=== PATIENT | male | born 1975 | race Caucasian/White ===

== ENCOUNTER 2018-02-25 15:13 | Inpatient (IN) ==
[2018-02-25] MEDS ORDERED: Isovue-370 500 ML INFUS..BTL IV ONE (16:03)
--- NOTE | 2018-02-25 16:10 | Emergency Department Note ---
Disposition Clinical Impression: Hyperkalemia, CKD (chronic kidney disease) stage V requiring chronic dialysis Volume overload Qualifiers: Hypervolemia type: unspecified Qualified Code(s): E87.70 - Fluid overload, unspecified Disposition: Admitted As Inpatient Condition: Fair Referrals: NONE,PCP [Primary Care Provider] - Forms: ED Satisfaction Letter Time of Disposition: 16:30 General Adult HPI - General Chief complaint: ED Trauma Stated complaint: "urinating blood after fall from truck" Time Seen by Provider: 02/25/18 15:45 Source: patient Mode of arrival: ambulatory Limitations: no limitations Nursing Notes Reviewed: Yes Vital Signs Reviewed: Yes - History of Present Illness HPI Narrative: Patient is a 42-year-old male that presents the emergency department for left hip pain and blood in his urine after a fall approximately 4 days ago. Patient also states that he has been swelling more than normal and has a significant amount of swelling in his genitals. Patient states that he is a dialysis patient and dialyzes Sunday and Sunday and has not dialyzed in over a week. Patient states that he was climbing up into a truck and his leg gave out and he fell onto his left buttock and has had pain in his left hip since then. Patient denies any chest pain, shortness of breath or any abdominal pain at this time. Pain Scale: 8 - Related Data Home Medications Medication Instructions Recorded Confirmed Carvedilol [Coreg] 25 mg PO BID 01/31/16 02/25/18 Pravastatin Sodium [Pravachol] 40 mg PO DAILY 01/31/16 02/25/18 amLODIPine [Norvasc] 5 mg PO DAILY 01/31/16 02/25/18 Ergocalciferol (VITAMIN D2) 50,000 unit PO QWEEK 07/23/17 02/25/18 [Vitamin D2] Hydralazine HCl 100 mg PO Q8H 07/23/17 02/25/18 Isosorbide DInitrate [Isosorbide 20 mg PO TID 07/23/17 02/25/18 Dinitrate] Calcium Acetate [Phos-LO] 667 mg PO 02/25/18 Furosemide [Lasix] 80 mg PO BID 02/25/18 02/25/18 Mirtazapine [Remeron] 7.5 mg PO HS 05/14/18 05/14/18 Previous Rx's Medication Instructions Recorded Aspirin 81 mg PO DAILY #30 tab.chew 07/26/17 Losartan [Cozaar] 12.5 mg PO DAILY #30 tablet 08/02/17 Allergies Allergy/AdvReac Type Severity Reaction Status Date / Time No Known Allergies Allergy Verified 01/31/16 18:49 All systems ED: reviewed and negative except as stated. Cardiovascular: Denies: chest pain Respiratory: Denies: dyspnea Gastrointestinal: Reports: other (Swelling in the abdomen). Denies: abdominal pain, nausea, vomiting Musculoskeletal: Reports: other (Left hip pain). Denies: back pain Neurological: Denies: weakness, numbness, paresthesias Hematological/Lymphatic: Reports: other (Patient has 2+ pitting edema from the abdomen down to his feet.) Past Medical History - Past Medical History Medical history: Reports: CHF, diabetes, hyperlipidemia, hypertension, renal disease Surgical history: Reports: non-contributory Psychiatric history: Reports: no psych history - Social History Smoking Status: Current every day smoker Smokeless Tobacco Status: No Alcohol use: Reports: none Drug use: Reports: marijuana Physical Exam - General Limitations: no limitations General appearance: alert, in no apparent distress - Head Head exam: atraumatic, normocephalic - Eye Eye exam: Present: normal appearance, EOMI - Neck Neck exam: Present: normal inspection, full ROM, trachea midline - Respiratory Respiratory exam: Present: normal lung sounds bilaterally. Absent: respiratory distress - Cardiovascular Cardiovascular exam: Present: regular rate, normal rhythm, normal heart sounds, +S1, +S2 - Abdominal Exam Abdominal exam: Present: soft, Non-Tender, normal bowel sounds, other (1-2+ pitting edema) - Male exam: Present: scrotal swelling. Absent: normal inspection, normal testicular lie Scrotal exam: testicular tenderness: right, testicular swelling: bilateral - Neurological Exam Neurological exam: Present: alert, oriented X3 - Psychiatric Psychiatric exam: Present: normal affect, normal mood - Skin Skin exam: Present: warm, dry, intact Course - Consultations Consultation #1: I called and spoke with Dr. Mejia the trap operator and he stated that the patient will be dialyzed tomorrow due to the patient mentating appropriately and having adequate oxygen saturation on room air. Time: 19:16 Vital Signs Temperature 97.9 F 02/25/18 15:34 Pulse Rate 97 02/25/18 15:34 Respiratory Rate 18 05/14/18 15:34 Blood Pressure 176/119 02/25/18 15:34 O2 Sat by Pulse Oximetry 98 02/25/18 15:34 Temperature 97.9 F 02/25/18 15:34 Pulse Rate 104 02/25/18 18:12 Respiratory Rate 16 02/25/18 18:26 Blood Pressure 184/122 02/25/18 18:12 O2 Sat by Pulse Oximetry 99 02/25/18 18:26 Oxygen Delivery Oxygen Delivery Room Air Medical Decision Making - MDM Narrative Medical decision making narrative: Due to the patient presenting to the emergency department after a fall and having what appears to be fluid overload from not being able to be dialyzed for one week we will obtain basic laboratory testing including a CBC, BMP, troponin and chest x-ray EKG as well as a CT with IV contrast of the abdomen and pelvis and x-rays of the left hip and femur. X-rays did not show any evidence of acute fracture. CT scan of the abdomen and pelvis did show that there was some and sarcoid and fluid overload. There also was evidence of possible neoplasm within the lungs. The patient was notified of these findings. the patient has a significantly elevated creatinine. Potassium of 5.5. And is significantly fluid overloaded with a BNP of greater than 5000. Due to this volume overload and feel that this patient needs to be admitted for dialysis. I called and spoke with the on-call trap operator Dr. Mejia and he is aware of the patient is being admitted. Patient also received dextrose, insulin, bicarbonate and albuterol to help with the hyperkalemia. Patient was also given analgesics here in the emergency department. Patient did have a elevated troponin of 0.08 but is not actively having any chest pain and is likely secondary to the patient being volume overloaded and having a significant decrease in his kidney function. I called and spoke with the hospitalist [facility] and they have accepted the patient to their service with a request that we contact Dr. Mejia and determine when the patient will be dialyzed. - Lab Data Lab results reviewed: Yes I reviewed the patient's lab results. Result diagrams: 02/25/18 15:58 02/25/18 15:58 Lab Results 02/25/18 02/25/18 02/25/18 Range/Units 15:58 15:58 15:58 WBC 10.2 (4.3-11.1) K/mcL RBC 4.53 (4.19-5.50) M/mcL Hgb 14.0 (12.9-16.9) g/dL Hct 41.7 (37.5-50.1) % MCV 92.1 (83.0-100.0) fL MCH 30.9 (28.0-33.3) pg MCHC 33.6 (31.6-35.5) g/dL RDW 16.6 H (11.5-14.5) % Plt Count 140 (140-400) K/mcL MPV 10.9 (9.4-12.4) fL Immature Gran % 0.4 (0-4) % Seg Neutrophils % 86.3 % Lymphocytes % 9.8 % Monocytes % 2.4 % Eosinophils % 0.8 % Basophils % 0.3 % Neutrophils # 8.8 (1.6-8.9) K/mcL Lymphocytes # 1.0 (0.6-4.6) K/mcL Monocytes # 0.2 (0.0-1.3) K/mcL Eosinophils # 0.1 (0.0-0.6) K/mcL Basophils # 0.0 (0.0-0.2) K/mcL Sodium 133 L (136-145) mEq/L Potassium 5.5 H (3.5-5.1) mEq/L Chloride 95 L (98-107) mEq/L Carbon Dioxide 21 L (23-29) mEq/L BUN 109 H (6-20) mg/dL Creatinine 10.25 H (0.70-1.30) mg/dL Est GFR ( Amer) 7 L (> 60) Est GFR (Non-Af Amer) 6 L (> 60) BUN/Creatinine Ratio 11 (6-26) Glucose 115 H (70-105) mg/dL Calculated Osmolality 311 H (280-300) Calcium 8.4 L (8.6-10.3) mg/dL Troponin I 0.08 H* (< 0.04) ng/mL B-Natriuretic Peptide > 5000 H (Less than 100) pg/mL - Radiology Data Radiology results reviewed: Yes I reviewed the patient's radiology results. Abdomen/Pelvis CT 02/25/18 16:03 IMPRESSION: No acute traumatic abnormalities are detected. Large bilateral pleural effusions. Rounded masslike areas of opacity are identified within the left lung. These could represent round atelectasis, but neoplasm remains in the differential. Pleural fluid results in atelectasis within the lower lungs bilaterally. Marked, diffuse edema throughout all the soft tissues, both intra and extraperitoneal, which limits evaluation secondary to a lack of contrast resolution. The degree of edema with suggests marked anasarca. Urinary bladder mural thickening. Correlate with any clinical evidence of cystitis. D/ / Nilton Mckeon MD / Nilton Mckeon MD Interpreting Provider: Nilton Mckeon MD Chest X-Ray 02/25/18 16:03 IMPRESSION: Constellation of findings most consistent with CHF/fluid overload. D/ / Amari Kumar MD / Amari Kumar MD Interpreting Provider: Amari Kumar MD Femur X-Ray 02/25/18 16:03 IMPRESSION: No fracture or malalignment involving the left hip or femur. Osteoarthrosis about the left knee. D/ / Chris Marmolejo / Chris Marmolejo Interpreting Provider: Chris Marmolejo Pelvis X-Ray 02/25/18 16:03 IMPRESSION: No fracture or malalignment involving the left hip or femur. Osteoarthrosis about the left knee. D/ / Chris Marmolejo / Chris Marmolejo Interpreting Provider: Chris Marmolejo Attestation Statement - Attestation Attestation: I have personally performed a face to face evaluation on this patient. I have reviewed and agree with the care plan. History and Exam by me shows:dialysis tomorrow with dr mejia
[2018-02-25 16:13] LABS: Basophils % 0.3 %; Eosinophils # 0.1 K/mcL (0.0-0.6); Eosinophils % 0.8 %; Hematocrit 41.7 % (37.5-50.1); Immature Granulocytes % 0.4 % (0-4); Lymphocytes % 9.8 %; Mean Corpuscular HGB Conc 33.6 g/dL (31.6-35.5); Mean Corpuscular Hemoglobin 30.9 pg (28.0-33.3); Mean Corpuscular Volume 92.1 fL (83.0-100.0); Mean Platelet Volume 10.9 fL (9.4-12.4); Monocytes # 0.2 K/mcL (0.0-1.3); Monocytes % 2.4 %; Neutrophils # 8.8 K/mcL (1.6-8.9); Platelet Count 140 K/mcL (140-400); Red Blood Count 4.53 M/mcL (4.19-5.50); Red Cell Distribution Width 16.6 % (11.5-14.5); Segmented Neutrophils % 86.3 %
[2018-02-25 16:36] LABS: Calcium 8.4 mg/dL (8.6-10.3); Potassium 5.5 mEq/L (3.5-5.1)
[2018-02-25] MEDS ORDERED: Sodium Bicarbonate 50 MEQ/50 ML VIAL IVP ONE (16:44)
[2018-02-25] MEDS ORDERED: Insulin Human Regular 10 UNIT in 0.9 % Sodium Chloride 10 ML IV ONE (16:45)
[2018-02-25] MEDS ORDERED: *HR* Dextrose 50 % in Water (Syg) 50 ML SYRINGE IVP ONE (16:46)
[2018-02-25] MEDS ORDERED: Albuterol 2.5 MG/3 ML NEBULIZER IH ONE (16:49)
[2018-02-25 16:53] LABS: Troponin I 0.08 ng/mL (< 0.04)
--- NOTE | 2018-02-25 17:04 | Emergency Department Note ---
Disposition Clinical Impression: Hyperkalemia Volume overload Qualifiers: Hypervolemia type: unspecified Qualified Code(s): E87.70 - Fluid overload, unspecified Disposition: Admitted As Inpatient Condition: Undetermined Referrals: NONE,PCP [Primary Care Provider] - Forms: ED Satisfaction Letter General Adult HPI - General Chief complaint: ED Trauma Stated complaint: "urinating blood after fall from truck" Time Seen by Provider: 02/25/18 15:45 Source: patient Mode of arrival: ambulatory Limitations: no limitations - History of Present Illness Pain Scale: 8 - Related Data Home Medications Medication Instructions Recorded Confirmed Carvedilol [Coreg] 25 mg PO BID 01/31/16 01/08/18 Pravastatin Sodium [Pravachol] 40 mg PO DAILY 01/31/16 01/08/18 amLODIPine [Norvasc] 5 mg PO DAILY 01/31/16 01/08/18 Ergocalciferol (VITAMIN D2) 50,000 unit PO QWEEK 07/23/17 01/08/18 [Vitamin D2] Hydralazine HCl 100 mg PO Q8H 07/23/17 01/08/18 Isosorbide DInitrate [Isosorbide 20 mg PO TID 07/23/17 01/08/18 Dinitrate] Previous Rx's Medication Instructions Recorded Aspirin 81 mg PO DAILY #30 tab.chew 07/26/17 Clopidogrel [Plavix] 75 mg PO DAILY #30 tablet 07/26/17 Losartan [Cozaar] 12.5 mg PO DAILY #30 tablet 08/02/17 Nitroglycerin 0.4 mg SL PRN PRN #30 tab.subl 08/02/17 cephALEXin [Keflex] 500 mg PO TID #21 capsule 01/08/18 Allergies Allergy/AdvReac Type Severity Reaction Status Date / Time No Known Allergies Allergy Verified 01/31/16 18:49 Cardiovascular: Denies: chest pain Respiratory: Denies: dyspnea Gastrointestinal: Reports: other (Swelling in the abdomen). Denies: abdominal pain, nausea, vomiting Musculoskeletal: Reports: other (Left hip pain). Denies: back pain Neurological: Denies: weakness, numbness, paresthesias Hematological/Lymphatic: Reports: other (Patient has 2+ pitting edema from the abdomen down to his feet.) Past Medical History - Past Medical History Medical history: Reports: CHF, diabetes, hyperlipidemia, hypertension, renal disease Surgical history: Reports: non-contributory Psychiatric history: Reports: no psych history - Social History Smoking Status: Current every day smoker Smokeless Tobacco Status: No Alcohol use: Reports: none Drug use: Reports: marijuana Physical Exam - General Limitations: no limitations General appearance: alert, in no apparent distress Course Vital Signs Temperature 97.9 F 02/25/18 15:34 Pulse Rate 97 02/25/18 15:34 Respiratory Rate 18 02/25/18 15:34 Blood Pressure 176/119 02/25/18 15:34 O2 Sat by Pulse Oximetry 98 02/25/18 15:34 Temperature 97.9 F 02/25/18 15:34 Pulse Rate 104 02/25/18 15:55 Respiratory Rate 18 02/25/18 15:55 Blood Pressure 187/104 02/25/18 15:55 O2 Sat by Pulse Oximetry 96 02/25/18 15:55 Oxygen Delivery Oxygen Delivery Room Air Medical Decision Making - Lab Data Result diagrams: 02/25/18 15:58 02/25/18 15:58 Lab Results 02/25/18 02/25/18 02/25/18 Range/Units 15:58 15:58 15:58 WBC 10.2 (4.3-11.1) K/mcL RBC 4.53 (4.19-5.50) M/mcL Hgb 14.0 (12.9-16.9) g/dL Hct 41.7 (37.5-50.1) % MCV 92.1 (83.0-100.0) fL MCH 30.9 (28.0-33.3) pg MCHC 33.6 (31.6-35.5) g/dL RDW 16.6 H (11.5-14.5) % Plt Count 140 (140-400) K/mcL MPV 10.9 (9.4-12.4) fL Immature Gran % 0.4 (0-4) % Seg Neutrophils % 86.3 % Lymphocytes % 9.8 % Monocytes % 2.4 % Eosinophils % 0.8 % Basophils % 0.3 % Neutrophils # 8.8 (1.6-8.9) K/mcL Lymphocytes # 1.0 (0.6-4.6) K/mcL Monocytes # 0.2 (0.0-1.3) K/mcL Eosinophils # 0.1 (0.0-0.6) K/mcL Basophils # 0.0 (0.0-0.2) K/mcL Sodium 133 L (136-145) mEq/L Potassium 5.5 H (3.5-5.1) mEq/L Chloride 95 L (98-107) mEq/L Carbon Dioxide 21 L (23-29) mEq/L BUN 109 H (6-20) mg/dL Creatinine 10.25 H (0.70-1.30) mg/dL Est GFR ( Amer) 7 L (> 60) Est GFR (Non-Af Amer) 6 L (> 60) BUN/Creatinine Ratio 11 (6-26) Glucose 115 H (70-105) mg/dL Calculated Osmolality 311 H (280-300) Calcium 8.4 L (8.6-10.3) mg/dL Troponin I 0.08 H* (< 0.04) ng/mL B-Natriuretic Peptide > 5000 H (Less than 100) pg/mL Attestation Statement - Attestation Attestation: I examined this patient and my medical decision-making was reviewed with the Resident Physician. I agree with the documented findings, disposition and treatment plan as described except to the extent set forth below. 42 year old male prsentes to the ED with complaints of fluid overload and hematuira s/p falling out of his truck a few days ago. Radha has flakn pain and is dialysis ptient who has missed dialysis for a week. Radha states that heis also feeling incresingl more fatigued. Radha has a K of 5.5 and has scrotal edema. we will do a trauma eval and then admit filippo for dialysis
[2018-02-25] MEDS ORDERED: *HR* FentaNYL (PF) 100 MCG/2 ML VIAL IVP ONE (17:10)
[2018-02-25] MEDS ORDERED: *HR* OxyCODONE/APAP 5/325 TABLET PO ONE (18:26)
[2018-02-25 20:34] LABS: Bilirubin,Urine Negative (Negative); Blood,Urine Large (Negative); Clarity,Urine Cloudy (Clear); Color,Urine Yellow (Yellow); Glucose,Urine (UA) 250 mg/dL (Normal); Ketones,Urine Negative (Negative); Leukocyte Esterase,Urine Small (Negative); Nitrite,Urine Negative (Negative); Protein,Urine >=300 mg/dL (Neg-Trace); Specific Gravity,Urine 1.019 (1.010-1.025); Urobilinogen,Urine Normal (Normal)
[2018-02-25 20:37] LABS: Bacteria,Urine None Seen per hpf (None-Few); Hyaline Casts,Urine None Seen per lpf (None-Few); RBC,Urine TNTC per hpf (0-3); Squamous Epithelial Cell,Urine None Seen per lpf (None-Few); WBC,Urine 50-100 per hpf (0-3)
[2018-02-25] MEDS ORDERED: Naloxone 0.4 MG/ML INJ IVP PRN (21:50)
[2018-02-25] MEDS ORDERED: Acetaminophen 325 MG TABLET PO PRN (21:50)
[2018-02-25] MEDS ORDERED: cefTRIAXone 1,000 MG in 0.9 % Sodium Chloride Mini Bag 100 ML IVPB SCH (22:00)
[2018-02-25] MEDS: *HR* HYDROcodone/Acet 5/325 mg TABLET PO PRN (23:14)
[2018-02-25] MEDS: cefTRIAXone 1,000 MG in Water for inj. (sterile) 20 ML 10 ML IVPB SCH (23:16)
--- NOTE | 2018-02-25 23:39 | Internal Med History&Physical ---
Date of Encounter: 02/25/18 Time of Encounter: 20:00 Internal Medicine - H&P: HPI Chief complaint: Left hip pain Admitted From: Home Plans for Post Hospital Care: Home History of present illness: Mr. Bright is a 42 year old male presented to ER for left hip pain. Past medical history is significant for hypertension, diabetes on diet control only, end-stage renal disease on hemodialysis. Patient said he fell from high truck and causing left hip pain and left groin area pain. Patient denies loss of consciousness. Patient denies head injury. In the emergency room, x-ray and CT has been done, no fracture identified. However, patient was noticed he has missed hemodialysis for 1 week. The patient complaint generalized weakness, shortness of breath. He denies fever or nausea. In the emergency room, potassium 5.5, creatinine over 10. Patient was admitted for hemodialysis and fluid overdose. Patient denies chest pain, or shortness of breath. Past Med Surg Social Fam HX - Past Medical History Medical history: CHF, diabetes, hyperlipidemia, hypertension, renal disease Psychiatric history: no psych history - Past Surgical History Surgical History: non-contributory - Social History Smoking Status: Current every day smoker Packs per day: 1 Smokeless Tobacco Status: No Alcohol use: none Drug use: none, marijuana - Family History Father Adopted: No Family Member Ethnicity: Non- Living Status: Still Living Hx Family Cardiac Disorders: Yes (dialysis) Hx Family Cancer: Yes Mother Adopted: No Family Member Ethnicity: Non- Living Status: Still Living Internal Medicine - H&P: Meds Carvedilol [Coreg] 25 mg PO BID 01/31/16 [History] Pravastatin Sodium [Pravachol] 40 mg PO DAILY 01/31/16 [History] amLODIPine [Norvasc] 5 mg PO DAILY 01/31/16 [History] Ergocalciferol (VITAMIN D2) [Vitamin D2] 50,000 unit PO QWEEK 07/23/17 [History] Hydralazine HCl 100 mg PO Q8H 07/23/17 [History] Isosorbide DInitrate [Isosorbide Dinitrate] 20 mg PO TID 07/23/17 [History] Aspirin 81 mg PO DAILY #30 tab.chew 07/26/17 [Rx] Losartan [Cozaar] 12.5 mg PO DAILY #30 tablet 08/02/17 [Rx] Calcium Acetate [Phos-LO] 667 mg PO 02/25/18 [History] Furosemide [Lasix] 80 mg PO BID 02/25/18 [History] Mirtazapine [Remeron] 7.5 mg PO HS 02/25/18 [History] 3 Allergy/AdvReac Type Severity Reaction Status Date / Time No Known Allergies Allergy Verified 01/31/16 18:49 All Systems PM: A 10-system review of systems was performed and is negative for pertinent findings except as documented above in the HPI. - Constitutional Vitals: Temp Pulse Resp BP Pulse Ox 97.8 F 94 18 180/124 98 02/25/18 22:53 02/25/18 22:53 02/25/18 22:53 02/25/18 22:53 02/25/18 22:53 General appearance: Present: A&O X 3, no acute distress, answers questions appropriately - Head Head exam: Present: atraumatic, normocephalic - Eye Eye exam: Present: PERRL, conjuntiva pink, sclera anicteric Pupils: Present: PERRL - Neck Neck exam general surgery: Present: supple, trachea midline. Absent: lymphadenopathy - Respiratory Respiratory exam: Present: CTAB. Absent: accessory muscle use, rales, rhonchi, wheezes - Cardiovascular Cardiovascular exam: Present: RRR, +S1, +S2. Absent: diastolic murmur, gallop, rubs, systolic murmur - GI/Abdominal GI/Abdominal exam: Present: normal bowel sounds, soft, no peritoneal signs. Absent: distended, tenderness Additional comments: Scrotum edema - Extremities Exam Extremities exam: Present: pedal edema (Mild pedal edema bilaterally), warm, radial pulses palpable and symmetrical. Absent: calf tenderness, cyanotic - Neurological Exam Neurological exam: Present: CN II-XII intact, oriented X3, no focal deficits. Absent: pronater drift, facial droop, speech deficit - Skin Skin exam: Present: dry, intact Internal Med - H&P Results - Labs CBC & Chem 7: 02/25/18 15:58 02/25/18 15:58 Labs: Cardiac Enzymes 02/25/18 Range/Units 22:11 Troponin I 0.09 H* (< 0.04) ng/mL - Assessment and plan (1) Hip pain Current Visit: Yes Status: Acute Assessment and plan: No fracture on imaging study. Continue pain management as needed Qualifiers: Laterality: left Qualified Code(s): M25.552 - Pain in left hip (2) UTI (urinary tract infection) Current Visit: Yes Status: Acute Assessment and plan: Urinalysis shows UTI. Place patient on Rocephin. Follow-up urine culture Qualifiers: Urinary tract infection type: acute cystitis Hematuria presence: without hematuria Qualified Code(s): N30.00 - Acute cystitis without hematuria (3) DVT prophylaxis Current Visit: Yes Status: Acute Assessment and plan: Heparin subcutaneously (4) Anasarca Current Visit: No Status: Acute Assessment and plan: Probably due to fluid overload. Nephrology was counseled, plan for hemodialysis (5) HTN (hypertension), benign Current Visit: No Status: Acute Assessment and plan: Continue home medications. Hydralazine IV when necessary (6) DMII (diabetes mellitus, type 2) Current Visit: No Status: Acute Assessment and plan: Continue diet control. Closely monitor glucose level Qualifiers: Diabetes mellitus jail insulin use: without jail use Diabetes mellitus complication status: with kidney complications Diabetes mellitus complication detail: with chronic kidney disease Chronic kidney disease stage : on chronic dialysis Qualified Code(s): E11.22 - Type 2 diabetes mellitus with diabetic chronic kidney disease; N18.6 - End stage renal disease; Z99.2 - Dependence on renal dialysis (7) ESRD (end stage renal disease) on dialysis Current Visit: Yes Status: Acute Assessment and plan: Patient has missed hemodialysis for about 1 week. Nephrology was counseled. Plan to start dialysis tomorrow. (8) Hyperkalemia Current Visit: Yes Status: Acute Assessment and plan: Given 1 dose of Kayexalate. Hemodialysis tomorrow per nephrology. (9) Volume overload Current Visit: Yes Status: Acute Assessment and plan: Management as above Qualifiers: Hypervolemia type: unspecified Qualified Code(s): E87.70 - Fluid overload, unspecified (10) Pleural effusion Current Visit: Yes Status: Acute Assessment and plan: Most likely due to missing dialysis and fluid overload. Will restart hemodialysis. (11) Lung mass Current Visit: Yes Status: Acute Assessment and plan: Left side suspected lung mass. Incidental finding by abdominal CT. Consider referring to pulmonology for further evaluation, nonurgent, can be done as outpatient. (12) Elevated troponin Current Visit: Yes Status: Acute Assessment and plan: Patient denies chest pain. EKG has been done ER and has been reviewed by ER physician. Mild elevated troponin most likely due to end-stage renal disease. - Continuous cardiac monitoring. - Track totally 3 sets of troponin - Time Spent With Patient Total time spent is greater than 50% in coordination of care (as documented) at patient's floor/unit and/or counseling patient: 40 minutes Greater than 35 minutes
[2018-02-26] MEDS: hydrALAZINE 25 MG TABLET PO SCH ×4 (04:25→23:06)
[2018-02-26] MEDS: *HR* HYDROcodone/Acet 5/325 mg TABLET PO PRN (04:30)
[2018-02-26] MEDS: *HR* Heparin 5,000 UNIT/ML VIAL SQ SCH ×2 (04:31→17:31)
[2018-02-26 06:49] LABS: Basophils % 0.3 %; Eosinophils # 0.1 K/mcL (0.0-0.6); Eosinophils % 0.6 %; Hematocrit 37.5 % (37.5-50.1); Immature Granulocytes % 0.4 % (0-4); Lymphocytes # 0.8 K/mcL (0.6-4.6); Lymphocytes % 7.9 %; Mean Corpuscular HGB Conc 33.1 g/dL (31.6-35.5); Mean Corpuscular Hemoglobin 30.5 pg (28.0-33.3); Mean Corpuscular Volume 92.1 fL (83.0-100.0); Monocytes # 0.5 K/mcL (0.0-1.3); Monocytes % 4.8 %; Neutrophils # 9.1 K/mcL (1.6-8.9); Platelet Count 136 K/mcL (140-400); Red Blood Count 4.07 M/mcL (4.19-5.50); Red Cell Distribution Width 16.5 % (11.5-14.5)
[2018-02-26 06:50] LABS: Hemoglobin 12.4 g/dL (12.9-16.9)
[2018-02-26 06:52] LABS: Calcium 7.7 mg/dL (8.6-10.3); Magnesium 2.4 mg/dL (1.6-2.6); Potassium 5.7 mEq/L (3.5-5.1)
--- NOTE | 2018-02-26 07:09 | Electrocardiograph Report ---
[place] [id number] Test Date: 2018-02-25 Pat Name: Manuel Bright Department: 102 Room: 15 Gender: M [employer]: : 1975 Requested By: Reji Swain Order Number: [id number] Reading MD: Phu Prince Measurements Intervals [place] Rate: 96 P: 23 [place]: 140 QRS: -4 QRSD: 94 T: 135 QT: 368 QTc: 422 Interpretive Statements SINUS RHYTHM NONSPECIFIC ST & T-WAVE ABNORMALITY Electronically Signed On 02-26-2018 7:07:27 EDT by Phu Prince
[2018-02-26] MEDS: Furosemide 40 MG TABLET PO SCH ×2 (07:44→20:48)
[2018-02-26] MEDS ORDERED: amLODIPine 5 MG TABLET PO SCH (09:00)
[2018-02-26] MEDS ORDERED: Aspirin 81 MG TAB.CHEW PO SCH (09:00)
[2018-02-26] MEDS ORDERED: 0.9 % Sodium Chloride 250 ML IVC PRN (09:04)
[2018-02-26] MEDS ORDERED: *HR* Heparin 10,000 UNIT/10 ML VIAL IV PRN (09:04)
[2018-02-26] MEDS ORDERED: 0.9 % Sodium Chloride 1,000 ML PRIME SCH (09:15)
--- NOTE | 2018-02-26 09:20 | Nephrology Consult Note ---
Date of Encounter: 02/26/18 Time of Encounter: 09:15 Assessment and Plan (1) ESRD (end stage renal disease) on dialysis Current Visit: Yes Status: Acute Dr. Kaur's patient. MWF [facility]. HD ordered for today. Continue to renal dose all medications, avoid nephrotoxins. Renal Diet. (2) Hip pain Current Visit: Yes Status: Acute On PO medication. Per primary team. Qualifiers: Laterality: left Qualified Code(s): M25.552 - Pain in left hip (3) Volume overload Current Visit: Yes Status: Acute Edema noted. HD ordered for today. Qualifiers: Hypervolemia type: unspecified Qualified Code(s): E87.70 - Fluid overload, unspecified History of Present Illness - Reason for Consult Consult date: 02/25/18 end stage renal disease - Chief Complaint left hip pain - History of Present Illness Mr. Bright is a 42 year old male patient of Dr. Kaur, he gets HD MWF at [facility]. PMH: ESRD, DM (Diet Controlled), and HTN. He did miss 2 treatments last week due to car trouble and his fall on afternoon, his last treatment was Sunday. He does admit to falling from a truck on his back and left hip. Denies LOC or head trauma. Denies HARDING, numbness/tingling. Denies any bowel or bladder dysfunction. Admits to hematuria that has since subsided. Was short of breath upon arriving to ED, has also subsided. Denies CP. Past Med Surg Social Fam HX - Past Medical History Medical history: CHF, diabetes, hyperlipidemia, hypertension, renal disease Psychiatric history: no psych history - Past Surgical History Surgical History: non-contributory - Social History Smoking Status: Current every day smoker Packs per day: 1 Smokeless Tobacco Status: No Alcohol use: none Drug use: none, marijuana - Family History Father Adopted: No Family Member Ethnicity: Non- Living Status: Still Living Hx Family Cardiac Disorders: Yes (dialysis) Hx Family Cancer: Yes Mother Adopted: No Family Member Ethnicity: Non- Living Status: Still Living Medications and Allergies Carvedilol [Coreg] 25 mg PO BID 01/31/16 [History] Pravastatin Sodium [Pravachol] 40 mg PO DAILY 04/18/16 [History] amLODIPine [Norvasc] 5 mg PO DAILY 01/31/16 [History] Ergocalciferol (VITAMIN D2) [Vitamin D2] 50,000 unit PO QWEEK 07/23/17 [History] Hydralazine HCl 100 mg PO Q8H 07/23/17 [History] Isosorbide DInitrate [Isosorbide Dinitrate] 20 mg PO TID 07/23/17 [History] Aspirin 81 mg PO DAILY #30 tab.chew 07/26/17 [Rx] Losartan [Cozaar] 12.5 mg PO DAILY #30 tablet 08/02/17 [Rx] Calcium Acetate [Phos-LO] 667 mg PO 02/25/18 [History] Furosemide [Lasix] 80 mg PO BID 02/25/18 [History] Mirtazapine [Remeron] 7.5 mg PO HS 02/25/18 [History] 3 Allergy/AdvReac Type Severity Reaction Status Date / Time No Known Allergies Allergy Verified 01/31/16 18:49 Review of Systems Constitutional: no chills, no fatigue, no fever(s) Cardiovascular: as per HPI Respiratory: as per HPI, no cough Genitourinary Male: as per HPI Neurological: as per HPI Exam - Vital Signs Vital signs: Initial Vital Signs Temp Pulse Resp BP Pulse Ox 97.9 F 97 18 176/119 98 02/25/18 15:34 02/25/18 15:34 02/25/18 15:34 02/25/18 15:34 02/25/18 15:34 Vital Signs - Last 8 Hours Temp Pulse Resp BP Pulse Ox 02/26/18 08:59 97 02/26/18 08:55 97 18 96 02/26/18 07:21 98.6 F 100 16 181/121 96 Intake and Output 02/25/18 02/26/18 02/26/18 23:59 07:59 15:59 Intake Total 240 / 240 215 / 215 Output Total 100 / 100 Balance 240 / 240 -100 / -100 215 / 215 Intake: Oral 240 / 240 215 / 215 Output: Urine 100 / 100 Other: Meal Breakfast Percent of Meal Consumed 100% Blood Glucose* 113 - General Appearance General appearance: well-developed, well-nourished, appears started age EENT: ATNC, hearing intact, vision intact Neck: supple Respiratory: clear Cardiology: no murmurs, edema (Trace bilateral lower edema.), normal S1, normal S2 - Dialysis Access Dialysis Vascular Access: Arteriovenous Fistula thrill: Yes bruit: Yes Additional Comments: LUE. Tunneled HD cath noted to right chest, patient is anxious to have it D/[place]. Gastrointestinal: normoactive bowel sounds, no tenderness, no guarding Integumentary: no rash, warm and dry Neurologic: alert and oriented x3 Psychiatric: mood/affect appropriate, cooperative Results - Lab Results 02/26/18 04:00 02/26/18 04:00 Most recent lab results Calcium 7.7 mg/dL (8.6-10.3) L 02/26/18 04:00 Magnesium 2.4 mg/dL (1.6-2.6) 02/26/18 04:00 Consult Discharge Plan - Plan Referrals: Sissy Conner DO [Non-Partnered Physician] - 03/07/18 11:45 am
[2018-02-26 11:58] LABS: INR 1.3; Prothrombin Time 13.9 Seconds (9.4-12.1)
[2018-02-26] MEDS ORDERED: 0.9 % Sodium Chloride 2,000 ML ONE (13:56)
[2018-02-26] MEDS: *HR* OxyCODONE/APAP 5/325 TABLET PO PRN ×2 (14:55→18:59)
--- NOTE | 2018-02-26 16:01 | IR Procedure Note ---
Date of procedure: 02/26/18 Consent Obtained: Written consent Timeout: Correct patient and procedure verified, Correct site verified, Time out performed, Skin prep completed Local anesthetic: Lidocaine 1% Indications: Working UE access, catheter no longer needed Procedure Performed: Tunneled HD catheter removal Was there an assistant chief nursing officer present: No Site/Technique: RIJV tunneled HD catheter removal. Results/Findings: Hemostasis obtained with manual compression. Estimated blood loss (cc): 1 Post Procedure Treatment Plan: Monitoring in HD Specimen: N/a
--- NOTE | 2018-02-26 16:41 | Electrocardiograph Report ---
[place] [id number] Test Date: 2018-02-26 Pat Name: Manuel Bright Department: 110 Room: 15 Gender: M [employer]: : 1975 Requested By: Slime Quintero Order Number: [id number] Reading MD: Cathy Castillo Measurements Intervals [place] Rate: 93 P: 36 ME: 139 QRS: 0 QRSD: 90 T: 93 QT: 370 QTc: 421 Interpretive Statements SINUS RHYTHM LEFT ATRIAL ENLARGEMENT NONSPECIFIC ST & T-WAVE ABNORMALITY Electronically Signed On 02-26-2018 16:39:26 EDT by Cathy Castillo
--- NOTE | 2018-02-26 16:52 | Internal Med Progress Note ---
Date of Encounter: 02/26/18 Time of Encounter: 14:30 - Assessment and plan (1) UTI (urinary tract infection) Current Visit: Yes Status: Acute Assessment and plan: Urine culture grows gram-negative rods. Continue IV Rocephin, follow up final urine culture. Qualifiers: Urinary tract infection type: acute cystitis Hematuria presence: without hematuria Qualified Code(s): N30.00 - Acute cystitis without hematuria (2) Hip pain Current Visit: Yes Status: Acute Assessment and plan: Due to mechanical fall. Pelvic x-ray showed no acute trauma or fracture. Supportive care and pain control with when necessary oral oxycodone. Qualifiers: Laterality: left Qualified Code(s): M25.552 - Pain in left hip (3) Anasarca Current Visit: Yes Status: Acute Assessment and plan: Anasarca, volume overload and bilateral pleural effusions due to missed hemodialysis. Nephrology is on board, patient received dialysis today. (4) HTN (hypertension), benign Current Visit: Yes Status: Chronic Assessment and plan: Noted to have uncontrolled hypertension. Received hemodialysis, will resume home medications with stat doses now. Continue to monitor blood pressure closely. (5) DMII (diabetes mellitus, type 2) Current Visit: Yes Status: Chronic Assessment and plan: Blood sugars noted to be well controlled. Continue Accu-Chek blood glucose monitoring with sliding scale insulin as needed. Diabetic diet. Qualifiers: Diabetes mellitus server manager insulin use: without server manager use Diabetes mellitus complication status: with kidney complications Diabetes mellitus complication detail: with chronic kidney disease Chronic kidney disease stage : on chronic dialysis Qualified Code(s): E11.22 - Type 2 diabetes mellitus with diabetic chronic kidney disease; N18.6 - End stage renal disease; Z99.2 - Dependence on renal dialysis (6) ESRD (end stage renal disease) on dialysis Current Visit: Yes Status: Chronic Assessment and plan: Nephrology is on board for hemodialysis needs. Plan for second hemodialysis session in a.m. Resume home medications. (7) DVT prophylaxis Current Visit: Yes Status: Acute (8) Lung mass Current Visit: Yes Status: Acute Assessment and plan: CT abdomen/pelvis showed large bilateral pleural effusions, rounded masslike areas of opacity in the left lung, unclear if these are masses or pulmonary edema. Patient needs repeat imaging as outpatient in a few weeks. (9) Elevated troponin Current Visit: Yes Status: Acute Assessment and plan: Serial troponins flat and adynamic, at around 0.09, likely due to volume overload and end-stage renal disease. - Time Spent With Patient Total time spent is greater than 50% in coordination of care (as documented) at patient's floor/unit and/or counseling patient: - Subjective Interval history: Continues to report back pain and left hip pain from mechanical fall and requests increased pain meds; no fever/chills, chest or abdominal pain, dyspnea ; returned from HD; BP continues to be high; reports missing at least 3 HD sessions for the last week due to transport issues; - Constitutional Vitals: Temp Pulse Resp BP Pulse Ox 98.5 F 98 20 171/111 92 02/26/18 16:11 02/26/18 16:11 02/26/18 16:11 02/26/18 16:11 02/26/18 16:11 General appearance: Present: A&O X 3, no acute distress, answers questions appropriately - Respiratory Respiratory exam: Present: CTAB. Absent: accessory muscle use, rales, rhonchi, wheezes - Cardiovascular Cardiovascular exam: Present: RRR, +S1, +S2. Absent: diastolic murmur, gallop, rubs, systolic murmur - GI/Abdominal GI/Abdominal exam: Present: normal bowel sounds, soft, no peritoneal signs. Absent: distended, tenderness - Extremities Exam Extremities exam: Present: full ROM, warm, radial pulses palpable and symmetrical. Absent: calf tenderness, cyanotic, pedal edema - Neurological Exam Neurological exam: Present: CN II-XII intact, oriented X3, no focal deficits. Absent: pronater drift, facial droop, speech deficit Internal Medicine: Result - Labs CBC & Chem 7: 02/27/18 06:35 02/27/18 06:35 Labs: Short CBC 02/26/18 Range/Units 04:00 WBC 10.6 (4.3-11.1) K/mcL Hgb 12.4 L D (12.9-16.9) g/dL Hct 37.5 (37.5-50.1) % Plt Count 136 L (140-400) K/mcL Neutrophils # 9.1 H (1.6-8.9) K/mcL BMP 02/26/18 04:00 Sodium 135 L Potassium 5.7 H Chloride 98 Carbon Dioxide 22 L BUN 114 H Creatinine 10.35 H Glucose 116 H Calcium 7.7 L Cardiac Enzymes 02/25/18 02/26/18 Range/Units 22:11 04:00 Troponin I 0.09 H* 0.09 H* (< 0.04) ng/mL - ABG Interpretation ABG results: PT/INR, D-dimer PT 13.9 Seconds (9.4-12.1) H 02/26/18 11:43 - Impressions Impressions Insertion Tunneled Catheter 02/26/18 00:00 IMPRESSION: Successful removal of a tunneled hemodialysis catheter. D/ / Shawn Jacobson MD / Shawn Jacobson MD Interpreting Provider: Shawn Jacobson MD Consult Discharge Plan - Plan Referrals: Sissy Conner DO [Non-Partnered Physician] - 03/07/18 11:45 am
[2018-02-26] MEDS ORDERED: Mirtazapine 15 MG TABLET PO SCH (21:00)
[2018-02-26] MEDS: cefTRIAXone 1,000 MG in Water for inj. (sterile) 20 ML 10 ML IVPB SCH (23:07)
[2018-02-27] MEDS: *HR* OxyCODONE/APAP 5/325 TABLET PO PRN ×3 (01:11→14:57)
[2018-02-27] MEDS: *HR* Heparin 5,000 UNIT/ML VIAL SQ SCH (05:02)
[2018-02-27 07:27] LABS: Hematocrit 32.8 % (37.5-50.1); Hemoglobin 10.9 g/dL (12.9-16.9); Mean Corpuscular HGB Conc 33.2 g/dL (31.6-35.5); Mean Corpuscular Hemoglobin 30.4 pg (28.0-33.3); Mean Corpuscular Volume 91.6 fL (83.0-100.0); Mean Platelet Volume 11.2 fL (9.4-12.4); Platelet Count 111 K/mcL (140-400); Red Blood Count 3.58 M/mcL (4.19-5.50); Red Cell Distribution Width 16.3 % (11.5-14.5)
[2018-02-27 07:47] LABS: Calcium 7.2 mg/dL (8.6-10.3); Potassium 4.7 mEq/L (3.5-5.1)
[2018-02-27] MEDS ORDERED: Furosemide 40 MG TABLET PO SCH (08:00)
[2018-02-27] MEDS ORDERED: hydrALAZINE 25 MG TABLET PO SCH (09:00)
--- NOTE | 2018-02-27 09:49 | Nephrology Progress Note ---
Date of Encounter: 02/27/18 Time of Encounter: 09:46 - Assessment and Plan (1) ESRD (end stage renal disease) on dialysis Current Visit: Yes Status: Acute HD MWF at [facility] with [facility]. HD ordered for today. Tunneled cath removed yesterday by IR. Continue to avoid nephrotoxins and renal dose all medications. Renal Diet. (2) Hip pain Current Visit: Yes Status: Acute Per primary team. Qualifiers: Laterality: left Qualified Code(s): M25.552 - Pain in left hip (3) Volume overload Current Visit: Yes Status: Acute Edema noted. HD today. Qualifiers: Hypervolemia type: unspecified Qualified Code(s): E87.70 - Fluid overload, unspecified Subjective Principal diagnosis: Left hip pain Interval history: Pt seen and examined. Objective - Vital Signs Vital signs: Vital Signs Temp Pulse Resp BP Pulse Ox 02/27/18 07:12 97.8 F 85 13 149/85 95 02/27/18 00:09 98.5 F 85 18 145/77 93 02/26/18 18:42 97.8 F 96 20 160/89 94 02/26/18 16:11 98.5 F 98 20 171/111 92 02/26/18 15:03 96 02/26/18 15:01 96 20 176/104 94 02/26/18 13:52 97.0 F L 18 186/107 02/26/18 13:20 177/102 02/26/18 13:05 181/105 02/26/18 12:50 183/103 02/26/18 12:35 188/108 02/26/18 12:20 172/100 02/26/18 12:05 180/106 02/26/18 11:50 172/108 02/26/18 11:35 189/106 02/26/18 11:20 180/109 02/26/18 11:05 186/106 02/26/18 10:50 188/115 02/26/18 10:35 174/103 02/26/18 10:20 169/101 02/26/18 10:05 180/109 02/26/18 09:50 98.2 F 18 174/104 97 Intake and Output 02/26/18 02/27/18 02/27/18 23:59 07:59 15:59 Intake Total 100 / 100 120 / 120 Output Total 120 / 120 Balance 100 / 100 0 / 0 Intake: Oral 100 / 100 120 / 120 Output: Urine 120 / 120 Other: Meal Dinner Breakfast Percent of Meal Consumed 35% 100% # Voids 1 Weight 95.906 kg Blood Glucose* 101 73 - General Appearance General appearance: Present: well-developed, well-nourished, appears started age EENT: Present: ATNC, hearing intact, vision intact Neck: Present: supple Respiratory: Present: clear Cardiology: Present: edema (Trace bilateral lower extremity.), regular rate, regular rhythm Dialysis Vascular Access: Arteriovenous Fistula thrill: Yes bruit: Yes Gastrointestinal: Present: no tenderness, no guarding Integumentary: Present: no rash, warm and dry Neurologic: Present: alert and oriented x3 Psychiatric: Present: mood/affect appropriate, cooperative - Lab 02/27/18 06:35 02/27/18 06:35 Most recent lab results Calcium 7.2 mg/dL (8.6-10.3) L 02/27/18 06:35 Magnesium 2.4 mg/dL (1.6-2.6) 02/26/18 04:00 Consult Discharge Plan - Plan Referrals: Sissy Conner DO [Non-Partnered Physician] - 03/07/18 11:45 am
[2018-02-27] MEDS ORDERED: 0.9 % Sodium Chloride 250 ML IVC PRN (09:57)
[2018-02-27] MEDS ORDERED: 0.9 % Sodium Chloride 1,000 ML PRIME SCH (10:00)
[2018-02-27] MEDS ORDERED: 0.9 % Sodium Chloride 2,000 ML ONE (11:37)
[2018-02-27] MEDS ORDERED: Calcium Acetate 667 MG CAPSULE PO SCH (12:00)
--- NOTE | 2018-02-27 17:04 | Discharge Summary ---
- NOTES TO OUTPATIENT PROVIDER Notes to Outpatient Provider: Volume overload, missed HD sessions Orders not resulted at time of discharge: Pending orders 02/28/18 04:00 Basic Metabolic Panel AM 0400 Complete Blood Count w/o Diff [HEME] AM 0400 Phosphate [Phosphorous] AM 0400 03/01/18 04:00 Basic Metabolic Panel AM 0400 Complete Blood Count w/o Diff [HEME] AM 0400 03/02/18 04:00 Basic Metabolic Panel AM 0400 Complete Blood Count w/o Diff [HEME] AM 0400 03/03/18 04:00 Basic Metabolic Panel AM 0400 Complete Blood Count w/o Diff [HEME] AM 0400 03/04/18 04:00 Basic Metabolic Panel AM 0400 Complete Blood Count w/o Diff [HEME] AM 0400 03/05/18 04:00 Basic Metabolic Panel AM 0400 Complete Blood Count w/o Diff [HEME] AM 0400 03/06/18 04:00 Basic Metabolic Panel AM 0400 Complete Blood Count w/o Diff [HEME] AM 0400 Date of Encounter: 02/27/18 Time of Encounter: 17:04 - Discharge Diagnosis (1) UTI (urinary tract infection) Priority: Primary Status: Acute Qualifiers: Urinary tract infection type: acute cystitis Hematuria presence: without hematuria Qualified Code(s): N30.00 - Acute cystitis without hematuria (2) Hip pain Priority: Primary Status: Acute Qualifiers: Laterality: left Qualified Code(s): M25.552 - Pain in left hip (3) Anasarca Priority: Primary Status: Acute (4) HTN (hypertension), benign Priority: Secondary Status: Chronic (5) DMII (diabetes mellitus, type 2) Priority: Secondary Status: Chronic Qualifiers: Diabetes mellitus detention insulin use: without buttermaker use Diabetes mellitus complication status: with kidney complications Diabetes mellitus complication detail: with chronic kidney disease Chronic kidney disease stage : on chronic dialysis Qualified Code(s): E11.22 - Type 2 diabetes mellitus with diabetic chronic kidney disease; N18.6 - End stage renal disease; Z99.2 - Dependence on renal dialysis (6) ESRD (end stage renal disease) on dialysis Priority: Secondary Status: Chronic (7) Lung mass Priority: Primary Status: Acute (8) Elevated troponin Priority: Primary Status: Acute Hospital course: Mr. Bright is a 42 year old male with the above medical problems who presented with left-sided hip and back pain following a mechanical fall from his truck. Pelvic x-ray in the emergency room showed no evidence of trauma or fracture. His pain was eventually controlled with oral pain medications. He was also noted to have anasarca and bilateral pleural effusions with volume overload due to having missed at least 3 sessions of dialysis in the past week, due to issues with transportation. Nephrology was consulted and patient underwent 2 hemodialysis sessions while in the hospital. He was noted to have uncontrolled blood pressure initially, which is now better controlled after dialysis and resuming his home medications. Urinalysis was suggestive of UTI, unclear if this is a true UTI as patient is on dialysis and makes very little urine. He received a 3 day course of IV Rocephin, urine culture grows Serratia. Patient is currently medically stable for discharge, compliance with dialysis is reinforced and he verbalized understanding. Discharge discussed with: patient, nurse - Time Spent with Patient Total time spent providing and/or coordinating discharge services: Greater than 30 minutes (45 min) - Discharge Medications Prescriptions: OxyCODONE/APAP 5/325 [Percocet 5/325 MG] 1 each PO Q6HR PRN 5 Days #7 tablet PRN Reason: Severe Pain Home Medications: Carvedilol [Coreg] 25 mg PO BID 01/31/16 [History] Pravastatin Sodium [Pravachol] 40 mg PO DAILY 01/31/16 [History] amLODIPine [Norvasc] 5 mg PO DAILY 01/31/16 [History] Ergocalciferol (VITAMIN D2) [Vitamin D2] 50,000 unit PO QWEEK 07/23/17 [History] Hydralazine HCl 100 mg PO Q8H 07/23/17 [History] Isosorbide DInitrate [Isosorbide Dinitrate] 20 mg PO TID 07/23/17 [History] Aspirin 81 mg PO DAILY #30 tab.chew 07/26/17 [Rx] Losartan [Cozaar] 12.5 mg PO DAILY #30 tablet 08/02/17 [Rx] Calcium Acetate [Phos-LO] 667 mg PO 02/25/18 [History] Furosemide [Lasix] 80 mg PO BID 02/25/18 [History] Mirtazapine [Remeron] 7.5 mg PO HS 02/25/18 [History] Acetaminophen [Tylenol] 650 mg PO Q6HR PRN tablet 02/27/18 [Rx] OxyCODONE/APAP 5/325 [Percocet 5/325 MG] 1 each PO Q6HR PRN 5 Days #7 tablet [Rx] Allergies/Adverse Reactions: 3 Allergy/AdvReac Type Severity Reaction Status Date / Time No Known Allergies Allergy Verified 01/31/16 18:49 Date of admission: 02/25/18 21:50 Primary care physician: PCP NONE Consults: 02/25/18 23:07 Consult to Nutrition [CONS] Routine Comment: Consulting Provider: NUTRITION Reason for Dietary Consult: Diet Education 02/26/18 09:15 Consult to Dialysis [CONS] ONCE 02/26/18 11:12 Consult to Interventional Radiology [CONS] Routine Consulting Provider: Radiology Interventional Cols Reason for Consult: Please remove tunneled HD cath before discharge. Call Completed: No 02/27/18 10:00 Consult to Dialysis [CONS] ONCE Discharging clinician: Justine Quintero Anticipated date of discharge: 02/27/18 - Constitutional Vitals: Temp Pulse Resp BP Pulse Ox 98.7 F 85 22 163/89 95 02/27/18 16:00 02/27/18 07:12 02/27/18 16:00 02/27/18 16:00 02/27/18 07:12 General appearance: Present: A&O X 3, no acute distress, answers questions appropriately - Cardiovascular Cardiovascular exam: Present: RRR, +S1, +S2. Absent: diastolic murmur, gallop, rubs, systolic murmur - Patient Status Disposition: Home, Self-Care Condition: Fair Functional capacity at discharge: independent ambulation Overall status at discharge: patient is progressing back to baseline - Discharge Instructions Follow Up With: Sissy Conner DO [Non-Partnered Physician] - 03/07/18 11:45 am Additional Instructions: F/up for HD 3 times/week- MWF - Diet and Activity Activity: resume usual activities as tolerated Diet: diabetic diet, low salt diet, other (renal diet)
[2018-02-27 17:05] VITALS: BP 171/95
== END 2018-02-27 18:47 | disposition home or self-care (01) | DRG 291 ==
LOC: 2ANU 15:13 → EMEROO 15:13 → 2NNU 21:41 → SUATTDRO 21:50 → 2NNU 22:30 → 2ANU 02-26 18:34
PROVIDERS: ADMIT Nurse Practitioner Family; ATTEND Internal Medicine